=== PATIENT | female | born 1980 | race Caucasian/White ===

== ENCOUNTER 2022-11-27 17:14 | Emergency (ER) | payer OTHER, SELFPAY ==
--- NOTE | ~2022-11-27 | XR_ITS ---
EXAMINATION: XR ABDOMEN COMPLETE CLINICAL INDICATION: Reason for Exam upright and flat rule out obstruction COMPARISON: None TECHNIQUE: AP view of the abdomen. FINDINGS: Lines or devices: None. Nonobstructive bowel gas pattern. Large colonic stool burden. No extraluminal subdiaphragmatic air. Calcified phleboliths in the pelvis. XR/XR abdomen min 2V IMPRESSION: * Nonobstructive bowel gas pattern. Large colonic stool burden.
[2022-11-27 17:28] VITALS: BP 127/73; BP 168/96; PULSE 68; PULSE 73; RESP 16; TEMP 36.6; O2SAT 97; O2SAT 98; BMI 30.9
--- NOTE | 2022-11-27 18:12 | ED_ITS ---
HPI - General Adult General Chief complaint: General Medical Stated complaint: NO BM X'S 2 WEEKS FROM INPT @ [facility] Time Seen by Provider: 11/27/22 18:09 Source: patient Mode of arrival: ambulatory Limitations: no limitations History of Present Illness HPI narrative: No history of surgery, Patient with a history of constipation. No healty BM for 2 weeks. Onset (ago): week(s) Severity: moderate Related Data Home Medications Medication Instructions Recorded Confirmed clonazepam 1 mg tablet 1 tab PO TID PRN Anxiety 11/27/22 11/27/22 clonidine HCl 0.2 mg tablet 1 tab PO TID 11/27/22 11/27/22 gabapentin 400 mg capsule 1 cap PO TID 11/27/22 11/27/22 levothyroxine 100 mcg tablet 1 tab PO DAILY 11/27/22 11/27/22 metoprolol tartrate 100 mg tablet 1 tab PO DAILY 11/27/22 11/27/22 olanzapine 5 mg tablet 5 mg PO 11/27/22 quetiapine 100 mg tablet 100 mg PO 11/27/22 trazodone 100 mg tablet 1 tab PO BEDTIME 11/27/22 11/27/22 Allergies Allergy/AdvReac Type Severity Reaction Status Date / Time No Known Allergies Allergy Verified 11/27/22 18:17 Review of Systems Review of Systems: Yes all other systems are reviewed and are negative Gastrointestinal: Gastrointestinal: Reports other (constipation) [facility] Social History Social History Alcohol intake: never Smoked in Last 30 Days: No Use of substances other than those prescribed or required for medical reasons: No Advance Directives: No Advance Directives Information Provided: No Patient : No Physical Exam ED Vital Signs: Vital Signs - 24 hr 11/27/22 17:28 11/27/22 18:52 Temperature 97.9 F 98.2 F Pulse Rate 73 69 Respiratory Rate 16 18 Blood Pressure 168/96 H 152/85 H Pulse Oximetry 98 97 Oxygen Delivery Method Room Air Room Air BMI result Body Mass Index 30.9 Const General: healthy appearing Nutritional Appearance: average body habitus Orientation/consciousness: oriented to person and patient oriented x3 Limitations: no limitations HENMT Head: Yes normal to inspection Ears: external ears normal General nose exam: Normal external nose present Mouth: Normal oral and palatal mucosa present and oropharynx normal Throat: Yes posterior oropharynx normal Eyes General: appearance normal, both eyes and all related structures Neck Neck: Yes normal visual inspection Chest Chest palpation & inspection: normal inspection of the chest Resp Auscultation: clear to auscultation bilaterally Cardio Jugular venous distension: no JVD Rate: regular rate Rhythm: regular rhythm Heart sounds: S1 normal heart sound present and S2 normal heart sound present GI Other: large distended but has good BS and is soft Palpation (GI): Tenderness to palpation present (GI) Auscultation: normal bowel sounds General: Yes no CVA tenderness Back/Spine/Pelvis Back: no CVA tenderness Skin General skin exam: no rashes or lesions noted Neuro General: oriented to person and patient oriented x3 Cranial nerves: Yes CN's II-XII intact bilaterally Motor exam (neuro): 5/5 motor strength present throughout Extrem General: Yes normal to inspection Psych Appearance: grossly normal Course Reevaluation(s) Reevaluation #1: will dc patient on golytely Time: 19:34 Medications Administered Discontinued Medications Generic Name Dose Route Start Last Admin Trade Name Freq PRN Reason Stop Dose Admin Polyethylene Glycol/Electrolytes 4,000 ml 11/27/22 18:30 11/27/22 18:43 Peg 3350/Na Sulf,Bicarb,Cl/Kcl 4,000 Ml Soln.Recon PO 11/27/22 18:31 4,000 ml ONCE ONE Administration Medical Decision Making Differential Diagnosis Differential Diagnoses: The differential diagnosis associated with the presentation includes constipation, bowel obsrtuction, fecal impatction Independent Interpretation I performed an independent interpretation of an: Plain X-Ray (KUB shows no obstruction, large stool burden) Tests considered The following testing was considered but not selected: Ct of abdomen considered but patient had BS on soft abdomen Chronic Conditions Patient?s care impacted by: Other (constipation) Discharge Plan Discharge Clinical Impression: Constipation Patient Disposition: Home, Self-Care Instructions: Constipation (ED) Additional Instructions: take golytley as instructed Prescriptions: No Action metoprolol tartrate 100 mg tablet 1 tab PO DAILY gabapentin 400 mg capsule 1 cap PO TID olanzapine 5 mg tablet 5 mg PO clonazepam 1 mg tablet 1 tab PO TID PRN (Reason: Anxiety) quetiapine 100 mg tablet 100 mg PO levothyroxine 100 mcg tablet 1 tab PO DAILY clonidine HCl 0.2 mg tablet 1 tab PO TID trazodone 100 mg tablet 1 tab PO BEDTIME Referrals: Physician,Unknown J [Primary Care Provider] - 1 week
--- OUTSIDE RECORDS SUMMARY | 2022-11-27 18:14 | XMS_ITS | Continuity of Care Document ---
:1980 Author Organization [facility] Address [address] [place] [id number]- Care Team Providers Name Role Phone Not on Staff, PCP Primary Care Physician Unavailable Encounter [facility] [place] Date(s): 04/22/21 - 04/24/[address] [address] Discharge Disposition: A-D/C Home Attending Physician: Rosalina Kingston MD Admitting Physician: Abbie Lopez MD Referring Physician: Not on Staff, Referring MD Allergies, Adverse Reactions, Alerts Substance Reaction Severity Status amoxicillin Active Medications amitriptyline 100 mg oral tablet 1 tablet = 100 mg, By Mouth, Daily at bedtime, # 30 tablet, 0 Refills, Maintenance, 03/25/21 10:45:00 EDT, Tablet, Partial fill upon patient request if the prescription is for a schedule II opioid drug. Start Date: 03/25/21 Status: OrderedbuPROPion 150 mg/12 hours (SR) oral tablet, extended release 1 tablet = 150 mg, By Mouth, 2 times a day, # 60 tablet, 0 Refills, Maintenance, 03/25/21 10:36:00 EDT, ER Tablet, Partial fill upon patient request if the prescription is for a schedule II opioid drug. Start Date: 03/25/21 Status: OrderedcloNIDine 0.2 mg oral tablet 0.2 mg, 1, tablet, By Mouth, 3 times a day, # 60 tablet, Refills 0, Maintenance, 03/25/21 10:41:00 EDT, Partial fill upon patient request if the prescription is for a schedule II opioid drug. Start Date: 03/25/21 Status: OrderedColace sodium 100 mg oral capsule 100 mg, 1, capsule, By Mouth, 2 times a day, # 20 capsule, Refills 0, Tot. Refills 0, Maintenance, 03/25/21 19:04:00 EDT, Route to Pharmacy Electronically, [id number], Partial fill uponpatient request if the prescription is for a sche... Start Date: 03/25/21 Status: OrderedFleet Enema 19 gm-7 gm rectal enema 1 each, Rectally, Once, PRN as needed for constipation, # 133 mL, 0 Refills, Soft Stop, 03/26/21 12:00:00 EDT, Enema, [facility] #[id number], Partial fill upon patient request if the prescription is for a schedule II opioid drug., 1 each Rectally... Start Date: 03/26/21 Status: Orderedfolic acid 1 mg oral tablet 1 mg, 1, tablet, By Mouth, Daily, # 30 tablet, Refills 0, Maintenance, 03/25/21 10:39:00 EDT, Partial fill upon patient request if the prescription is for a schedule II opioid drug. Start Date: 03/25/21 Status: Orderedgabapentin 300 mg oral capsule 300 mg, 1, capsule, By Mouth, 3 times a day, # 90 capsule, Refills 0, Maintenance, 03/25/21 10:37:00EDT, Partial fill upon patient request if the prescription is for a schedule II opioid drug. Start Date: 03/25/21 Status: Orderedgabapentin 300 mg oral capsule 300 mg, Capsule, By Mouth, 04/24/21 9:00:00 EDT Start Date: 04/24/21 Stop Date: 04/24/21 Status: CompletedhydrOXYzine hydrochloride 25 mg oral tablet 1 tablet = 25 mg, By Mouth, 3 times a day, # 30 tablet, 0 Refills, Maintenance, 03/25/21 10:43:00 EDT, Tablet, Partial fill upon patient request if the prescription is for a schedule II opioid drug. Start Date: 03/25/21 Status: Orderedlactulose 10 gm/15 ml oral syrup 30 mL = 20 Gm, By Mouth, 2 times a day, Titrate to maintain 2-3 BM/day, # 1,000 mL, 1 Refills, Maintenance, 04/24/21 10:20:00 EDT, [id number], Partial fill upon patient request if the prescription is for a schedule II opioid audra... Start Date: 04/24/21 Status: OrderedMethadone See Instructions, 115 mg By Mouth Daily in AM, 0 Refills, Maintenance, 04/24/21 10:20:00 EDT, Tablet, Partial fill upon patient request if the prescription is for a schedule II opioid drug. Start Date: 04/24/21 Status: Orderedmethadone 10 mg oral tablet 115 mg, Tablet, By Mouth, 04/24/21 9:00:00 EDT Start Date: 04/24/21 Stop Date: 04/24/21 Status: Completedmetoprolol 100 mg oral tablet 200 mg, 2, tablet, By Mouth, 2 times a day, # 60 tablet, Refills 0, Maintenance, 03/25/21 10:40:00 EDT, Partial fill upon patient request if the prescription is for a schedule II opioid drug. Start Date: 03/25/21 Status: Orderedmetoprolol 100 mg oral tablet 200 mg, Tablet, By Mouth, 04/24/21 9:00:00 EDT Start Date: 04/24/21 Stop Date: 04/24/21 Status: CompletedMiraLax oral powder for reconstitution = 17 Gm, By Mouth, Daily, dissolve in water before taking, # 51 Gm, 0 Refills, Maintenance, 03/25/2119:04:00 EDT, REC Powder, [facility] #[id number], Partial fill upon patient request if the prescription is for a schedule II opioid drug., 17 Gm B... Start Date: 03/25/21 Stop Date: 03/28/21 Status: OrderedNicorette 4 mg oral transmucosal gum 1 each = 4 mg, Chew, Every 2 hours, PRN as needed for smoking cessation, # 40 each, 0 Refills, Maintenance, 03/25/21 10:37:00 EDT, Gum, Partial fill upon patient request if the prescription is for a schedule II opioid drug. Start Date: 03/25/21 Status: OrderedoxyCODONE 5 mg oral tablet 5 mg, Tablet, By Mouth, Every 6 hours, PRN for Pain , Severe, Routine, 04/22/21 17:18:00 EDT Start Date: 04/22/21 Stop Date: 04/24/21 Status: DiscontinuedQUEtiapine 50 mg oral tablet 1 tablet = 50 mg, By Mouth, 3 times a day, # 60 tablet, 0 Refills, Maintenance, 03/25/21 10:41:00 EDT, Tablet, Partial fill upon patient request if the prescription is for a schedule II opioid drug. Start Date: 03/25/21 Status: OrderedrisperiDONE 2 mg oral tablet 2 mg, 1, tablet, By Mouth, Daily at bedtime, Refills 0, Maintenance, 03/25/21 10:45:00 EDT, Partial fill upon patient request if the prescription is for a schedule II opioid drug. Start Date: 03/25/21 Status: Orderedsenna 17.2 mg oral tablet = 8.6 mg, By Mouth, 2 times a day, 2 tabs, # 60 tablet, 0 Refills, Maintenance, 04/24/21 10:19:00 EDT, Tablet, [id number], Partial fill upon patient request if the prescription is for aschedule II opioid drug., 162, cm, 04/24/21 7:38:... Start Date: 04/24/21 Status: OrderedtraZODone 50 mg oral tablet 50 mg, 1, tablet, By Mouth, Daily at bedtime, 1-2 tabs, # 30 tablet, Refills 0, Maintenance, 03/25/21 10:46:00 EDT, Partial fill upon patient request if the prescription is for a schedule II opioid drug. Start Date: 03/25/21 Status: OrderedVitamin B-100 By Mouth, Daily, 0 Refills, Maintenance, 03/25/21 10:38:00 EDT, Partial fill upon patient request ifthe prescription is for a schedule II opioid drug. Start Date: 03/25/21 Status: Ordered Problem List Condition Effective Dates Status Health Status Informant Abdominal pain(Confirmed) Active Asthma(Confirmed) Active Constipation(Confirmed) Active Hypothyroidism(Confirmed) Active Substance use disorder(Confirmed) Active Procedures Procedure Date Related Diagnosis Body Site Status Sigmoidoscopy, flexible; diagnostic, 04/23/21 Completed including collection of specimen(s) by brushing or washing, when performed (separate procedure) Vital Signs Most recent to oldest 1 2 3 [Reference Range]: Height 162 cm 162 cm 162 cm (04/24/21 7:38 AM) (04/24/21 4:30 AM) (04/23/21 7:4 0 PM) Weight 82.6 kg 82.6 kg 82.6 kg (04/23/21 1:44 PM) (04/22/21 9:30 AM) (04/22/21 9:1 1 AM) Oxygen Saturation [94-100 %] 98 % 98 % 100 % (04/24/21 7:38 AM) (04/24/21 4:30 AM) (04/23/21 7:4 0 PM) Pulse Rate [55-90 bpm] 68 bpm 68 bpm 67 bpm (04/24/21 9:51 AM) (04/24/21 7:38 AM) (04/24/21 4:3 0 AM) Body Mass Index [18.5-24.99] 31.47 31.47 *>HHI* *>HHI* (04/23/21 1:44 PM) (04/22/21 9:30 AM) Blood Pressure [90-138/55-84 149/85 mm Hg 149/85 mm Hg 118 /69 mm Hg mm Hg] *H* *H* (04/24/21 4:30 AM ) (04/24/21 9:51 AM) (04/24/21 7:38 AM) Respiratory Rate [16-30 20 br/min 20 br/min 20 br/mi n br/min] (04/24/21 11:06 AM) (04/24/21 10:51 AM) (04/24/21 1 0:50 AM) Temperature [96.8-100.4 98.2 DegF 98.6 DegF 97.7 Deg F DegF] (04/24/21 7:38 AM) (04/24/21 4:30 AM) (04/23/21 7:4 0 PM) Mode of Delivery (Oxygen) Room air Room air Room a ir (04/24/21 7:38 AM) (04/24/21 4:30 AM) (04/23/21 7:4 0 PM) Blood pressure sites Arm, left Arm, right Arm, left (04/24/21 7:38 AM) (04/24/21 4:30 AM) (04/23/21 7:4 0 PM) Temperature Route Oral Oral Oral (04/24/21 7:38 AM) (04/24/21 4:30 AM) (04/23/21 7:4 0 PM) Dry Weight 82.6 kg 82.6 kg (04/22/21 9:30 AM) (04/22/21 9:11 AM) Weight Obtained Via Standing scale (04/22/21 9:11 AM) Dry Weight Obtained Via Standing scale (04/22/21 9:11 AM) Social History Social History Type Response Tobacco Use: 4 or less cigarettes(le ss than 1/4 pack)/day in last 30 days. Sex
--- OUTSIDE RECORDS SUMMARY | 2022-11-27 18:14 | XMS_ITS | Continuity of Care Document ---
:1980 Author Organization [facility] Address [address] [place] [address]- Care Team Providers Name Role Phone Not on Staff, PCP Primary Care Physician Unavailable Encounter [facility] [place] Date(s): 02/28/22 - 03/01/[address] [address]- Discharge Disposition: A-D/C Walkout Attending Physician: Not on Staff, Attending MD Admitting Physician: Not on Staff, Admitting MD Referring Physician: Not on Staff, Referring [...] 03/25/21 19:04:00 EDT, Route to Pharmacy Electronically, [facility] #[id number], Partial fill uponpatient request if the prescription is for a sche... Start Date: 03/25/21 Status: OrderedFleet Enema 19 gm-7 gm rectal enema 1 each, Rectally, Once, PRN as needed for constipation, # 133 mL, 0 Refills, Soft Stop, 03/26/21 12:00:00 EDT, Enema, [facility] #[id number], Partial fill upon patient request if the [...] II opioid drug. Start Date: 03/25/21 Status: OrderedhydrOXYzine hydrochloride 25 mg oral tablet 1 tablet [...] 1 Refills, Maintenance, 04/24/21 10:20:00 EDT, Syrup, [facility] #[id number], Partial fill upon patient request if the prescription is for a schedule II opioid audra... Start Date: 04/24/21 Status: OrderedMethadone See Instructions, 115 mg By Mouth Daily in AM, 0 Refills, Maintenance, 04/24/21 10:20:00 EDT, Tablet, Partial fill upon patient request if the prescription is for a schedule II opioid drug. Start Date: 04/24/21 Status: Orderedmetoprolol 100 mg oral tablet 200 mg, 2, tablet, By Mouth, 2 times a day, # 60 tablet, Refills 0, Maintenance, 03/25/21 10:40:00 EDT, Partial fill upon patient request if the prescription is for a schedule II opioid drug. Start Date: 03/25/21 Status: OrderedMiraLax oral powder for reconstitution = 17 Gm, By Mouth, Daily, dissolve in water before taking, # 51 Gm, 0 Refills, Maintenance, 03/25/2119:04:00 EDT, REC Powder, [facility] #[id number], Partial fill upon patient request if the [...] II opioid drug. Start Date: 03/25/21 Status: OrderedQUEtiapine 50 mg oral tablet 1 tablet = [...] 0 Refills, Maintenance, 04/24/21 10:19:00 EDT, Tablet, [facility] #[id number], Partial fill upon patient request if the [...] Active Hypothyroidism(Confirmed) Active Substance use disorder(Confirmed) Active Vital Signs Most recent to oldest [Reference Range]: 1 2 Oxygen Saturation [94-100 %] 98 % 97 % (03/01/22 8:01 AM) (02/28/22 11:26 PM) Pulse Rate [55-90 bpm] 71 bpm 71 bpm (03/01/22 8:01 AM) (02/28/22 11:26 PM) Blood Pressure [90-138/55-84 mm Hg] 129/89 mm Hg 111/ 75 mm Hg (03/01/22 8:01 AM) (02/28/22 11:26 PM) Respiratory Rate [16-30 br/min] 14 br/min *L* (02/28/22 11: PM) Temperature [96.8-100.4 DegF] 97.3 DegF 97.9 DegF (03/01/22 8:01 AM) (02/28/22 11:26 PM) Mode of Delivery (Oxygen) Room air Room air (03/01/22 8:01 AM) (02/28/22 11:26 PM) Blood pressure sites Arm, right Arm, left (03/01/22 8:01 AM) (02/28/22 11:26 PM) Temperature Route Oral Oral (03/01/22 8:01 AM) (02/28/22 11:26 PM) Social History Social History Type Response Tobacco Use: 4 or less cigarettes(le ss than 1/4 pack)/day in last 30 days. Sex
--- OUTSIDE RECORDS SUMMARY | 2022-11-27 18:14 | XMS_ITS | Continuity of Care Document ---
:1980 Author Organization [facility] Address [address] [place] [id number]- Care Team Providers Name Role Phone Not on Staff, PCP Primary Care Physician Unavailable Encounter [facility] [place] Date(s): 07/01/21 - 07/31/21 [facility] [address] [place] [id number]- Attending Physician: William Pardo Admitting Physician: William Pardo Referring Physician: William Pardo Allergies, Adverse Reactions, Alerts Substance Reaction Severity [...] 03/25/21 19:04:00 EDT, [facility], [id number], Partial fill uponpatient request if the prescription is for a sche... Start Date: 03/25/21 Status: OrderedFleet Enema 19 gm-7 gm rectal enema 1 each, Rectally, Once, PRN as needed for constipation, # 133 mL, 0 Refills, Soft Stop, 03/26/21 12:00:00 EDT, Enema, [id number], Partial fill upon patient request if the [...] 1 Refills, Maintenance, 04/24/21 10:20:00 EDT, Syrup, [id number], Partial fill upon patient request if the [...] 0 Refills, Maintenance, 03/25/2119:04:00 EDT, REC Powder, [facility] #[id number], Partial fill upon patient request if the [...] 0 Refills, Maintenance, 04/24/21 10:19:00 EDT, Tablet, [facility] #[id number], Partial fill upon patient request if the [...] Active Hypothyroidism(Confirmed) Active Substance use disorder(Confirmed) Active Social History Social History Type Response Tobacco Use: 4 or less cigarettes(le ss than 1/4 pack)/day in last 30 days. Sex
--- OUTSIDE RECORDS SUMMARY | 2022-11-27 18:14 | XMS_ITS | Continuity of Care Document ---
:1980 Author Organization [facility] Address [address] [place] [address]- Care Team Providers Name Role Phone Not on Staff, PCP Primary Care Physician Unavailable Encounter [facility] [place] Date(s): 03/02/22 - 03/04/[address] [address] Discharge Disposition: A-D/C Home Attending Physician: Isabela Hall MD Admitting Physician: Ari Villarreal MD Referring Physician: Not on Staff, Referring MD Allergies, Adverse Reactions, Alerts Substance Reaction Severity Status amoxicillin Active Medications acetaminophen 325 mg oral tablet 650 mg, By Mouth, Every 4 hours, PRN, Temperature Greater than 100.5, Refills 0, Maintenance, Pain ,Mild, 03/04/22 13:37:00 EDT, Partial fill upon patient request if the prescription is for a scheduleII opioid drug. Start Date: 03/04/22 Status: Orderedamitriptyline 100 mg oral tablet 1 tablet = 100 mg, By Mouth, Daily at bedtime, # 30 tablet, 0 Refills, Maintenance, 03/25/21 10:45:00 EDT, Tablet, Partial fill upon patient request if the prescription is for a schedule II opioid drug. Start Date: 03/25/21 Status: OrderedB Complex 100 1 tablet, By Mouth, Daily, 0 Refills, Maintenance, 03/02/22 17:20:00 EDT, Partial fill upon patient request if the prescription is for a schedule II opioid drug. Start Date: 03/02/22 Status: Orderedbaclofen 10 mg oral tablet 5 mg, Tablet, By Mouth, 03/04/22 15:00:00 EDT Start Date: 03/04/22 Stop Date: 03/04/22 Status: Completedbaclofen 10 mg oral tablet 5 mg, 0.5, tablet, By Mouth, 3 times a day, # 10.5 tablet, Refills 0, Tot. Refills 0, Maintenance, 03/04/22 11:48:00 EDT, Route to Pharmacy Electronically, [facility], Partial fill upon patient request if the prescription is for a schedu... Start Date: 03/04/22 Stop Date: 03/11/22 Status: Orderedbisacodyl 10 mg rectal suppository 1 supp = 10 mg, Rectally, Daily, PRN for constipation, for 5 days, # 5 supp, 0 Refills, Acute 03/09/22 13:40:00 EDT, 03/04/22 13:40:00 EDT, Suppository, [facility], Partial fill upon patient request if the prescription is for a schedule... Start Date: 03/04/22 Stop Date: 03/09/22 Status: OrderedbuPROPion 150 mg/12 hours (SR) oral [...] II opioid drug. Start Date: 03/25/21 Status: Ordereddocusate-senna 50 mg-187 mg oral tablet 2 tablet, By Mouth, 2 times a day, PRN Constipation, for 10 days, # 30 tablet, 0 Refills, Acute 03/14/22 13:38:00 EDT, 03/04/22 13:38:00 EDT, Tablet, [facility], Partial fill upon patientrequest if the prescription is for a schedule II... Start Date: 03/04/22 Stop Date: 03/14/22 Status: Orderedfolic acid 1 mg oral tablet 1 mg, 1, tablet, By Mouth, Daily, # 30 tablet, Refills 0, Maintenance, 03/25/21 10:39:00 EDT, Partial fill upon patient request if the prescription is for a schedule II opioid drug. Start Date: 03/25/21 Status: Orderedgabapentin 300 mg oral capsule 300 mg, Capsule, By Mouth, 03/04/22 15:00:00 EDT Start Date: 03/04/22 Stop Date: 03/04/22 Status: Completedgabapentin 300 mg oral capsule 300 mg, 1, [...] II opioid drug. Start Date: 03/25/21 Status: Orderedlevothyroxine 100 mcg (0.1 mg) oral capsule 1 capsule = 100 mcg, By Mouth, Daily, 0 Refills, Maintenance, 03/02/22 17:21:00 EDT, Partial fill upon patient request if the prescription is for a schedule II opioid drug. Start Date: 03/02/22 Status: OrderedMethadone = 115 mg, By Mouth, Daily, 0 Refills, Maintenance, 04/24/21 10:20:00 EDT, Tablet, [...] 03/25/21 Status: Orderedmetoprolol 100 mg oral tablet 100 mg, Tablet, By Mouth, 03/04/22 7:00:00 EDT Start Date: 03/04/22 Stop Date: 03/04/22 Status: CompletedPhillips Milk of Magnesia 8% oral suspension 30 mL = 2.4 Gm, By Mouth, Daily at bedtime, PRN for constipation, # 300 mL, 0 Refills, Acute 03/17/22 9:00:00 EDT, 03/04/22 13:39:00 EDT, Suspension, [facility], Partial fill upon patientrequest if the prescription is for a schedule II... Start Date: 03/04/22 Stop Date: 03/17/22 Status: OrderedProAir HFA 90 mcg/inh inhalation aerosol 2 puffs, Inhalation, Every 6 hours, PRN Wheezing/Shortness of Breath, 0 Refills, Maintenance, 03/02/22 17:21:00 EDT, Partial fill upon patient request if the prescription is for a schedule II opioid drug. Start Date: 03/02/22 Status: OrderedQUEtiapine 50 mg oral tablet 1 tablet = 50 mg, By Mouth, 3 times a day, # 60 tablet, 0 Refills, Maintenance, 03/25/21 10:41:00 EDT, Tablet, Partial fill upon patient request if the prescription is for a schedule II opioid drug. Start Date: 03/25/21 Status: OrderedtraZODone 100 mg oral tablet 100 mg, 1, tablet, By Mouth, Daily at bedtime, Refills 0, Maintenance, 03/02/22 17:20:00 EDT, Partial fill upon patient request if the prescription is for a schedule II opioid drug. Start Date: 03/02/22 Status: Ordered Problem List Condition Effective Dates Status Health Status Informant Abdominal pain(Confirmed) Active Asthma(Confirmed) Active Constipation(Confirmed) Active Hypothyroidism(Confirmed) Active Substance use disorder(Confirmed) Active Results Orders for Microbiology Reports Name Date Blood Culture 03/02/22 Blood Culture 03/02/22 Blood Culture #2 03/02/22 Microbiology Reports TEST:Blood Culture STATUS:Unauthenticated BODY SITE: SOURCE:Blood COLLECTED DATE/TIME:03/02/22 1:52 PMBlood Culture SPECIMEN DESCRIPTION : BLOOD R UPPER ARM SPECIAL REQUESTS : NONE CULTURE : NO GROWTH AFTER 48 HOURS REPORT STATUS : PRELIMINARY REPORT TEST:Blood Culture, Second Order STATUS:Unauthenticated BODY SITE: SOURCE:Blood COLLECTED DATE/TIME:03/02/22 1:45 PMBlood Culture, Second Order SPECIMEN DESCRIPTION : BLOOD NO SITE SPECIAL REQUESTS : NONE CULTURE : NO GROWTH AFTER 48 HOURS REPORT STATUS : PRELIMINARY REPORT TEST:Blood Culture STATUS:Unauthenticated BODY SITE: SOURCE:Blood COLLECTED DATE/TIME:03/02/22 1:35 PMBlood Culture SPECIMEN DESCRIPTION : BLOOD L WRIST SPECIAL REQUESTS : NONE CULTURE : NO GROWTH AFTER 48 HOURS REPORT STATUS : PRELIMINARY REPORT Radiology Reports Exam Date Time Procedure Performing Provider Status 03/03/22 1:21 PM Lumbar Spine 2 or 3 Views Nicolas Hardwick [facility] (Verified) Notes:(Lumbar Spine 2 or 3 Views) Reason For Exam: PainRESULT: Lumbar Spine 2 or 3 Views Lumbar Spine 2 or 3 Views Reason: Pain; Clinical Question(s): Fracture Dislocation COMPARISON: None. FINDINGS: No bone lesions or fractures. Normal disc configuration. Normal alignment. No spondylolysis or spondylolisthesis. Large volume colonic fecal loading. IMPRESSION: 1. No fracture, malalignment, or significant degenerative change within the lumbar spine. 2. Large volume colonic fecal loading. WSN: [id number] Ordering Physician: Reagan Cloud Dictated By: Lemuel Duarte MD Dictated Date/Time: 03/03/22 1:37 pm Reviewed By: Lemuel Duarte MD Signed By: Lemuel Duarte MD Signed Date/Time: 03/03/22 1:37 pm Transcribed By: RAVINDER Transcribed Date/Time: 03/03/22 1:36 pm Exam Date Time Procedure Performing Provider Status 03/02/22 10:29 PM Chest 2 Views Frontal and Lat Samantha Hair; Mami (Verified) Notes:(Chest 2 Views Frontal and Lat) Reason For Exam: Shortness of Breath, Fever;Other:RESULT: Chest 2 Views Frontal and Lat Chest 2 Views Frontal and Lat Reason: Other:; Shortness of Breath, Fever; Clinical Question(s): Pneumonia COMPARISON: 01/02/2022. FINDINGS: LINES AND TUBES: None. LUNGS AND PLEURA: Clear lungs. Normal pulmonary vascularity. No pleural effusion. No pneumothorax. HEART, MEDIASTINUM AND DENNIS: Heart is normal in size. Normal upper mediastinal and hilar contour. BONES AND SOFT TISSUES: No acute abnormality. IMPRESSION: No acute abnormality. WSN: [id number] Ordering Physician: Yvrose Heller Dictated By: Raul Flowers MD Dictated Date/Time: 03/02/22 10:43 p Reviewed By: Raul Flowers MD Signed By: Raul Flowers MD Signed Date/Time: 03/02/22 10:43 pm Transcribed By: RAVINDER Transcribed Date/Time: 03/02/22 10:40 pm Vital Signs Most recent to oldest 1 2 3 [Reference Range]: Oxygen Saturation [94-100 %] 98 % 97 % 96 % (03/04/22 11:54 AM) (03/04/22 8:00 AM) (03/04/22 4: 00 AM) Pulse Rate [55-90 bpm] 59 bpm 72 bpm 62 bpm (03/04/22 11:54 AM) (03/04/22 8:42 AM) (03/04/22 8: 00 AM) Blood Pressure [90-138/55-84 106/59 mm Hg 124/68 mm Hg 124 /68 mm Hg mm Hg] (03/04/22 11:54 AM) (03/04/22 8:42 AM) (03/04/22 8: 00 AM) Respiratory Rate [16-30 18 br/min 18 br/min 18 br/mi n br/min] (03/04/22 3:28 PM) (03/04/22 3:25 PM) (03/04/22 11: 54 AM) Temperature [96.8-100.4 DegF] 98.0 DegF 98.2 DegF 97 .2 DegF (03/04/22 11:54 AM) (03/04/22 8:00 AM) (03/04/22 4: 00 AM) Mode of Delivery (Oxygen) Room air Room air Room a ir (03/04/22 11:54 AM) (03/04/22 8:00 AM) (03/04/22 4: 00 AM) Blood pressure sites Arm, left Arm, right Arm, right (03/04/22 8:00 AM) (03/04/22 4:00 AM) (03/04/22 12: 00 AM) Temperature Route Oral Oral Oral (03/04/22 11:54 AM) (03/04/22 8:00 AM) (03/04/22 4: 00 AM) Social History Social History Type Response Tobacco Use: 4 or less cigarettes(le ss than 1/4 pack)/day in last 30 days. Sex
--- OUTSIDE RECORDS SUMMARY | 2022-11-27 18:14 | XMS_ITS | Continuity of Care Document ---
:1980 Author Organization [facility] Address [address] [place] [id number]- Care Team Providers Name Role Phone Valarie ZIMMERMAN, Jennifer Primary Care Physician Encounter [facility] [place] Date(s): 12/24/19 - 12/24/[address] [address]- [facility] Encounter Diagnosis Asthma exacerbation (Final) - 12/24/19 Discharge Disposition: A-D/C Home Attending Physician: Kd Baer MD Admitting Physician: Kd Baer MD Referring Physician: Not on Staff, Referring MD Allergies, Adverse Reactions, Alerts Substance Reaction Severity Status NKA Active Medications albuterol CFC free 90 mcg/inh inhalation aerosol 2, puffs, Inhalation, 4 times a day, PRN, # 75 Gm, Refills 0, Tot. Refills 0, Maintenance, 12/24/19 20:06:00 EDT, Aerosol, Print Requisition Start Date: 12/24/19 Status: OrderedpredniSONE 20 mg oral tablet 2 tablet = 40 mg, By Mouth, Daily, for 4 days, # 8 tablet, 0 Refills, Acute 12/28/19 20:06:00 EDT, 12/24/19 20:06:00 EDT, Tablet Start Date: 12/24/19 Stop Date: 12/28/19 Status: Ordered Vital Signs Most recent to oldest 1 2 3 [Reference Range]: Oxygen Saturation [94-100 %] 96 % 98 % 100 % (12/24/19 8:31 PM) (12/24/19 6:39 PM) (12/24/19 6:3 0 PM) Pulse Rate [55-90 bpm] 68 bpm 66 bpm 72 bpm (12/24/19 8:31 PM) (12/24/19 6:39 PM) (12/24/19 6:3 0 PM) Blood Pressure [90-138/55-84 mm 113/66 mm Hg 115/70 mm Hg Hg] (12/24/19 8:31 PM) (12/24/19 6:39 PM) Respiratory Rate [16-30 br/min] 18 br/min 18 br/min (12/24/19 8:31 PM) (12/24/19 6:39 PM) Temperature [96.8-100.4 DegF] 97.5 DegF 98.2 DegF (12/24/19 8:31 PM) (12/24/19 6:39 PM) Mode of Delivery (Oxygen) Room air Room air Room a ir (12/24/19 8:31 PM) (12/24/19 6:39 PM) (12/24/19 6:3 0 PM) Blood pressure sites Arm, right Arm, right (12/24/19 8:31 PM) (12/24/19 6:39 PM) Temperature Route Oral Oral (12/24/19 8:31 PM) (12/24/19 6:39 PM)
--- OUTSIDE RECORDS SUMMARY | 2022-11-27 18:14 | XMS_ITS | Continuity of Care Document ---
:1980 Author Organization [facility] Address [address] [place] [id number]- Care Team Providers Name Role Phone Not on Staff, PCP Primary Care Physician Unavailable Encounter [facility] [place] Date(s): 04/29/21 - 07/31/21 [facility] [address] [place] [id number]- Attending Physician: Manuel Louis MD Admitting Physician: Manuel Louis MD Referring Physician: Blanche May MD Allergies, Adverse Reactions, Alerts Substance Reaction [...] 03/25/21 19:04:00 EDT, Route to Pharmacy Electronically, [id number], Partial fill uponpatient request if the prescription is for a sche... Start Date: 03/25/21 Status: OrderedFleet Enema 19 gm-7 gm rectal enema 1 each, Rectally, Once, PRN as needed for constipation, # 133 mL, 0 Refills, Soft Stop, 03/26/21 12:00:00 EDT, Enema, [facility] [id number], Partial fill upon patient request if the [...] 1 Refills, Maintenance, 04/24/21 10:20:00 EDT, Syrup, [id number], Partial fill upon patient request if the [...] 0 Refills, Maintenance, 03/25/2119:04:00 EDT, REC Powder, [id number], Partial fill upon patient request if the [...] 0 Refills, Maintenance, 04/24/21 10:19:00 EDT, Tablet, [id number], Partial fill upon patient request if the [...]
--- NOTE | 2022-11-27 18:30 | PC.NURSE ---
med not available down here at this time, called pharmacy, pharmacy will be bringing med down
[2022-11-27] MEDS: PEG 3350/Na Sulf,Bicarb,Cl/KCL 4,000 ML SOLN.RECON 4000 ML PO (18:43)
[2022-11-27 18:52] VITALS: BP 152/85; PULSE 69; RESP 18; TEMP 36.8; O2SAT 97
--- NOTE | 2022-11-27 20:10 | MHC.EDTECH ---
Call out to [facility] @1958 to book BLS transport to [place] ETA of one hour
== END 2022-11-27 20:55 | disposition home or self-care (01) ==
PROVIDERS: Emergency Provider Emergency Medicine
DX: K59.00 Constipation, unspecified (principal); R10.9 Unspecified abdominal pain; Z79.899 Other long term (current) drug therapy
CPT/HCPCS: 74019; 99283; 99284

== ENCOUNTER 2022-12-12 13:54 | Emergency (ER) | payer OTHER, SELFPAY ==
[2022-12-12 14:20] VITALS: BP 115/67; BP 118/75; PULSE 86; PULSE 94; RESP 18; TEMP 37.2; O2SAT 95; BMI 30.9
[2022-12-12 15:22] LABS: Amphetamine Screen Urine Not Detected (Not Detect); Barbiturates, Urine Not Detected (Not Detect); Benzodiazepines Screen Urine POSITIVE (Not Detect); COVID-19 Test Negative (Negative); Cannabinoid Screen Urine Not Detected (Not Detect); Cocaine Screen Urine Not Detected (Not Detect); Fentanyl, urine Not Detected (Not Detect); IDNOW Serial# 9DB6401D; Opiate Screen Urine Not Detected (Not Detect); Phencyclidine Screen Urine Not Detected (Not Detect)
--- NOTE | 2022-12-12 15:23 | ED.PSYCH ---
HPI - Psych General Chief Complaint: Psychiatric Symptoms <Alba Ramirez QUE Dobbins - Last Filed: 12/12/22 20:33> Stated Complaint: SEC 12, SI, From rehab per EMS <Alba Ramirez QUE Dobbins - Last Filed: 12/12/22 20:33> Time Seen by Provider: 12/12/22 14:55 <Albakeri Dobbins CNP - Last Filed: 12/12/22 20:33> Source: patient <Alba DobbinsQUE - Last Filed: 12/12/22 20:33> Mode of arrival: EMS <Alba Ramirez QUE Dobbins - Last Filed: 12/12/22 20:33> Limitations: no limitations <Alba Ramirez QUE Dobbins - Last Filed: 12/12/22 20:33> History of Present Illness HPI Narrative: Patient is a 42-year-old female who presents on a Section 12 via EMS coming from [facility]. Patient states that she was initially at [facility] for inpatient psychiatric care after an intentional overdose. She states that she was downgraded to detox/[facility] floor?, reports that the medication changes were made she does not know all of them, but particularly she was not receiving her Vyvanse secondary to an insurance issue? And there was no doctor there who could accommodate medication changes. Therefore she was subsequently transferred here. Her Section 12 does state that she has been endorsing SI, with urges for self-harm, recent thoughts, paranoia, disorganized thinking and poor sleep. She does endorse suicidal ideations at this time. She has no physical complaints. <Alba Ashleyinga Dobbins CNP - Last Filed: 12/12/22 20:33> Related Data Home Medications: Home Medications Medication Instructions Recorded Confirmed atomoxetine 40 mg capsule 40 mg PO DAILY 12/12/22 12/12/22 bupropion HCl 150 mg 24 hr tablet, 150 mg PO QAM 12/12/22 12/12/22 extended release clonazepam 1 mg tablet (Klonopin) 1 mg PO BID 12/12/22 12/12/22 clonidine HCl 0.2 mg tablet 0.2 mg PO BID PRN Anxiety 12/12/22 12/12/22 folic acid 1 mg tablet 1 mg PO DAILY 12/12/22 12/12/22 gabapentin 400 mg tablet 400 mg PO TID 12/12/22 12/12/22 levothyroxine 100 mcg tablet 100 mcg PO DAILY 12/12/22 12/12/22 lisdexamfetamine 20 mg capsule 20 mg PO DAILY 12/12/22 12/12/22 (Vyvanse) nicotine 21 mg/24 hr daily 1 patch transdermal DAILY 12/12/22 12/12/22 transdermal patch olanzapine 5 mg PO BID 12/12/22 12/12/22 propranolol 10 mg tablet 10 mg PO TID 12/12/22 12/12/22 quetiapine 150 mg tablet,extended 150 mg PO BEDTIME 12/12/22 12/12/22 release 24 hr trazodone 100 mg tablet 100 mg PO BEDTIME 12/12/22 12/12/22 <Alba Dobbins CNP - Last Filed: 12/12/22 20:33> Allergies/Adverse Reactions: Allergies Allergy/AdvReac Type Severity Reaction Status Date / Time No Known Allergies Allergy Verified 11/27/22 18:17 <Alba Dobbins CNP - Last Filed: 12/12/22 20:33> Review of Systems Review of Systems: Yes all other systems are reviewed and are negative <Alba Dobbins CNP - Last Filed: 12/12/22 20:33> [facility] Past Medical History Attestation statement: The following information was validated with the patient. <Alba Dobbins CNP - Last Filed: 12/12/22 20:33> Source: old records reviewed <Alba Dobbins CNP - Last Filed: 12/12/22 20:33> Social History Social History: Social History Alcohol intake: never Advance Directives: No Advance Directives Information Provided: Yes Healthcare Proxy: No Guardian: No <Alba Dobbins CNP - Last Filed: 12/12/22 20:33> Physical Exam Vital Signs: Vital Signs: Last Vital Signs Temp 97.8 F 12/13/22 08:23 Pulse 86 12/13/22 08:23 Resp 16 12/13/22 08:23 BP 126/89 12/13/22 08:23 Pulse Ox 96 03/04/23 08:23 O2 Del Method 12/13/22 08:23 BMI result Body Mass Index 30.9 <Alba Dobbins CNP - Last Filed: 12/12/22 20:33> Vital Signs: Last Vital Signs Temp 97.8 F 12/13/22 08:23 Pulse 86 12/13/22 08:23 Resp 16 12/13/22 08:23 BP 126/89 12/13/22 08:23 Pulse Ox 96 12/13/22 08:23 O2 Del Method 12/13/22 08:23 BMI result Body Mass Index 30.9 <Michael Brock MD - Last Filed: 12/13/22 11:00> Appearance: Alert.?Oriented to person, place and time. No acute distress.?Normal affect. Eyes: Pupils equal, round and reactive to light.? ENT: Pharynx normal.?? Neck: Normal inspection.? Neck supple.?? CVS: Heart sounds normal. Normal heart rate and rhythm.? Pulses normal.?? Respiratory: No respiratory distress.? Lung sounds clear to auscultation bilaterally?? Abdomen: Soft and non-tender. Normoactive bowel sounds. Skin: Skin warm and dry.? Normal skin color.? Extremities: No lower extremity edema.? Neuro: Moves all extremities spontaneously. Sensation intact bilaterally. CN II-XII intact. No focal neuro deficits. Ambulates with normal steady gait. <Alba Dobbins CNP - Last Filed: 12/12/22 20:33> Course Reevaluation(s) Reevaluation #1: Labs are overall unremarkable, vitals are stable, COVID negative, urinalysis without evidence of infection, is negative, MCGRAW positive for benzodiazepines, which she is prescribed. Patient placed in physician observation, the reason for observation being that additional time was required for care team evaluation to be performed, determination as to whether inpatient psychiatric services are required at this time. She is in no apparent distress. <Alba Dobbins CNP - Last Filed: 12/12/22 20:33> Time: 20:20 <Alba Dobbins CNP - Last Filed: 12/12/22 20:33> Reevaluation #2: Patient under physician observation, on Section 12, bed search is underway, no events reported by nurses overnight, continue physician observation. <Michael Brock MD - Last Filed: 12/13/22 11:00> Time: 11:00 <Michael Brock MD - Last Filed: 12/13/22 11:00> Medications Administered Generic Name Dose Route Start Last Admin Trade Name Freq PRN Reason Stop Dose Admin Bupropion HCl 150 mg 12/13/22 09:00 12/13/22 08:45 Bupropion Hcl Xl 150 Mg Tab.Er.24h PO 150 mg DAILY CHRISTOPHER Administration Clonazepam 1 mg 12/12/22 21:00 12/13/22 08:45 Clonazepam 1 Mg Tablet PO 1 mg BID CHRISTOPHER Administration Clonidine HCl 0.2 mg 12/12/22 17:31 12/12/22 20:44 Clonidine Hcl 0.2 Mg Tablet PO 0.2 mg BID PRN Administration Anxiety Protocol Folic Acid 1 mg 12/13/22 09:00 12/13/22 08:45 Folic Acid 1 Mg Tablet PO 1 mg DAILY CHRISTOPHER Administration Gabapentin 400 mg 12/12/22 21:00 12/13/22 08:45 Gabapentin 400 Mg Capsule PO 400 mg TID CHRISTOPHER Administration Levothyroxine Sodium 100 mcg 12/13/22 06:00 12/13/22 05:32 Levothyroxine Sodium 100 Mcg Tablet PO 100 mcg DAILY@0600 CHRISTOPHER Administration Nicotine 21 mg 12/13/22 09:00 12/13/22 08:45 Nicotine 21 Mg Patch.Td24 TRANSDERMA 21 mg DAILY CHRISTOPHER Administration Olanzapine 5 mg 12/12/22 21:00 12/13/22 08:45 Olanzapine 5 Mg Tablet PO 5 mg BID CHRISTOPHER Administration Propranolol HCl 10 mg 12/12/22 21:00 12/13/22 08:45 Propranolol Hcl 10 Mg Tablet PO 10 mg TID CHRISTOPHER Administration Protocol Quetiapine Fumarate 50 mg/ 75 mg 12/12/22 21:00 12/13/22 08:45 Quetiapine Fumarate 25 mg PO 75 mg BID CHRISTOPHER Administration Trazodone HCl 100 mg 12/12/22 21:00 12/12/22 20:38 Trazodone Hcl 100 Mg Tablet PO 100 mg BEDTIME CHRISTOPHER Administration <Alba Dobbins CNP - Last Filed: 12/12/22 20:33> Medications Administered Generic Name Dose Route Start Last Admin Trade Name Freq PRN Reason Stop Dose Admin Bupropion HCl 150 mg 12/13/22 09:00 12/13/22 08:45 Bupropion Hcl Xl 150 Mg Tab.Er.24h PO 150 mg DAILY CHRISTOPHER Administration Clonazepam 1 mg 12/12/22 21:00 12/13/22 08:45 Clonazepam 1 Mg Tablet PO 1 mg BID CHRISTOPHER Administration Clonidine HCl 0.2 mg 12/12/22 17:31 12/12/22 20:44 Clonidine Hcl 0.2 Mg Tablet PO 0.2 mg BID PRN Administration Anxiety Protocol Folic Acid 1 mg 12/13/22 09:00 12/13/22 08:45 Folic Acid 1 Mg Tablet PO 1 mg DAILY CHRISTOPHER Administration Gabapentin 400 mg 12/12/22 21:00 12/13/22 08:45 Gabapentin 400 Mg Capsule PO 400 mg TID CHRISTOPHER Administration Levothyroxine Sodium 100 mcg 12/13/22 06:00 12/13/22 05:32 Levothyroxine Sodium 100 Mcg Tablet PO 100 mcg DAILY@0600 CHRISTOPHER Administration Nicotine 21 mg 12/13/22 09:00 12/13/22 08:45 Nicotine 21 Mg Patch.Td24 TRANSDERMA 21 mg DAILY CHRISTOPHER Administration Olanzapine 5 mg 12/12/22 21:00 12/13/22 08:45 Olanzapine 5 Mg Tablet PO 5 mg BID CHRISTOPHER Administration Propranolol HCl 10 mg 12/12/22 21:00 12/13/22 08:45 Propranolol Hcl 10 Mg Tablet PO 10 mg TID CHRISTOPHER Administration Protocol Quetiapine Fumarate 50 mg/ 75 mg 12/12/22 21:00 12/13/22 08:45 Quetiapine Fumarate 25 mg PO 75 mg BID CHRISTOPHER Administration Trazodone HCl 100 mg 12/12/22 21:00 12/12/22 20:38 Trazodone Hcl 100 Mg Tablet PO 100 mg BEDTIME CHRISTOPHER Administration <Michael Brock MD - Last Filed: 12/13/22 11:00> Medical Decision Making Medical Decision Making MDM Narrative: Patient is a 42-year-old female who presents to the emergency department via EMS coming from [facility] on a Section 12 for suicidal ideations. At the time of my examination she is calm and cooperative. Her physical examination is benign. Her vital signs are stable. She is in no apparent respiratory distress. She reports that her feelings of suicidal ideation or due to her medication changes, most notably she states because she was taken off her Vyvanse due to a question lance insurance issue while there? Will obtain basic labs, attempt to obtain records from [facility] for most up-to-date medication list, and referred to care team for evaluation of potential inpatient psychiatric admission. I have reviewed her Mass[facility], patient does not have any prior prescriptions for Vyvanse that I can see, and she reports she was not receiving it while at [facility] <Alba Dobbins CNP - Last Filed: 12/12/22 20:33> Differential Diagnosis Differential Diagnoses: The differential diagnosis associated with the presentation includes (Delirium, paranoia, suicidal ideation, depression, anxiety, ADHD) <Alba Dobbins CNP - Last Filed: 12/12/22 20:33> Admission/Observation Consideration of admission/observation: Escalation of care including admission/observation considered <Alba Dobbins CNP - Last Filed: 12/12/22 20:33> Lab Data MDM Lab Attestation statement: I reviewed the patient's lab results. <Alba Dobbins CNP - Last Filed: 12/12/22 20:33> Result Diagrams: 12/12/22 19:58 12/12/22 19:58 <Alba Dobbins CNP - Last Filed: 12/12/22 20:33> Labs: Lab Results 12/12/22 12/12/22 12/12/22 Range/Units 15:02 15:02 15:02 WBC (4.8-10.8) X10*3/uL RBC (4.20-5.50) X10*6/uL Hgb (12.0-16.0) g/dl Hct (37.0-47.0) % MCV (80.0-98.0) fL MCH (27.0-33.0) pg MCHC (31.0-35.0) g/dl RDW (11.0-16.0) % Plt Count (160-400) X10*3/uL MPV (9.4-12.3) fL Immature Gran % (Auto) (0.0-0.4) % Neut % (Auto) (45-73) % Lymph % (Auto) (20-40) % Dale % (Auto) (2-11) % Eos % (Auto) (0-4) % Baso % (Auto) (0-2) % Lymph # (Auto) (1.2-4.9) X10*3/uL Dale # (Auto) (0.1-1.2) X10*3/uL Eos # (Auto) (0.0-0.4) X10*3/uL Baso # (Auto) (0.0-0.2) X10*3/uL Abs Immat Gran (auto) (0.00-0.03) X10*3/uL Absolute Neuts (auto) (2.0-8.3) x10*3/uL Absolute Nucleated RBC (0.0-0.012) X10*3/uL Nucleated RBC % (auto) (0.0-0.2) /100WBC Sodium (135-145) mmol/L Potassium (3.3-5.1) mmol/L Chloride (96-108) mmol/L Carbon Dioxide (22-29) mmol/L Anion Gap (12-20) BUN (9-16) mg/dL Creatinine (0.5-1.4) mg/dL Estim Creat Clear Calc Estimated GFR Random Glucose (60-115) mg/dL Calcium (8.4-10.2) mg/dL Total Bilirubin (0.0-1.0) mg/dL AST (5-31) U/L ALT (0-31) U/L Alkaline Phosphatase (39-117) U/L Total Protein (6.5-8.0) g/dL Albumin (3.5-5.0) g/dL Urine Color Urine Appearance Urine pH (5.0-9.0) Ur Specific Garnett (1.005-1.025) Urine Protein (Neg-Trace) mg/dL Urine Glucose (UA) (Negative) mg/dL Urine Ketones (Negative) mg/dL Urine Blood (Negative) Urine Nitrite (Negative) Ur Leukocyte Esterase (Negative) Urine Test NEGATIVE (NEGATIVE) Urine Opiates Screen Not Detected (Not Detect) Urine Fentanyl Screen Not Detected (Not Detect) Ur Barbiturates Screen Not Detected (Not Detect) Ur Phencyclidine Scrn Not Detected (Not Detect) Ur Amphetamines Screen Not Detected (Not Detect) U Benzodiazepines Scrn POSITIVE H (Not Detect) Urine Cocaine Screen Not Detected (Not Detect) U Marijuana (THC) Screen Not Detected (Not Detect) COVID-19 (SUSANNA) Negative (Negative) COVID-19 Clin Com See Note 12/12/22 12/12/22 12/12/22 Range/Units 15:02 19:58 19:58 WBC 5.4 (4.8-10.8) X10*3/uL RBC 3.59 L (4.20-5.50) X10*6/uL Hgb 11.0 L (12.0-16.0) g/dl Hct 33.0 L (37.0-47.0) % MCV 91.9 (80.0-98.0) fL MCH 30.6 (27.0-33.0) pg MCHC 33.3 (31.0-35.0) g/dl RDW 14.0 (11.0-16.0) % Plt Count 190 (160-400) X10*3/uL MPV 9.1 L (9.4-12.3) fL Immature Gran % (Auto) 0.4 (0.0-0.4) % Neut % (Auto) 34.7 L (45-73) % Lymph % (Auto) 43.4 H (20-40) % Dale % (Auto) 11.6 H (2-11) % Eos % (Auto) 9.2 H (0-4) % Baso % (Auto) 0.7 (0-2) % Lymph # (Auto) 2.3 (1.2-4.9) X10*3/uL Dale # (Auto) 0.6 (0.1-1.2) X10*3/uL Eos # (Auto) 0.5 H (0.0-0.4) X10*3/uL Baso # (Auto) 0.0 (0.0-0.2) X10*3/uL Abs Immat Gran (auto) 0.02 (0.00-0.03) X10*3/uL Absolute Neuts (auto) 1.9 L (2.0-8.3) x10*3/uL Absolute Nucleated RBC 0.000 (0.0-0.012) X10*3/uL Nucleated RBC % (auto) 0.0 (0.0-0.2) /100WBC Sodium 141 (135-145) mmol/L Potassium 4.4 (3.3-5.1) mmol/L Chloride 104 (96-108) mmol/L Carbon Dioxide 29 (22-29) mmol/L Anion Gap 12 (12-20) BUN 9 (9-16) mg/dL Creatinine 0.82 (0.5-1.4) mg/dL Estim Creat Clear Calc 90.4 Estimated GFR > 60 Random Glucose 109 (60-115) mg/dL Calcium 8.4 (8.4-10.2) mg/dL Total Bilirubin 0.2 (0.0-1.0) mg/dL AST 13 (5-31) U/L ALT 13 (0-31) U/L Alkaline Phosphatase 82 (39-117) U/L Total Protein 6.0 L (6.5-8.0) g/dL Albumin 3.3 L (3.5-5.0) g/dL Urine Color Yellow Urine Appearance Cloudy Urine pH 5.0 (5.0-9.0) Ur Specific Garnett 1.025 (1.005-1.025) Urine Protein Negative (Neg-Trace) mg/dL Urine Glucose (UA) Negative (Negative) mg/dL Urine Ketones Trace (Negative) mg/dL Urine Blood Negative (Negative) Urine Nitrite Negative (Negative) Ur Leukocyte Esterase Negative (Negative) Urine Test (NEGATIVE) Urine Opiates Screen (Not Detect) Urine Fentanyl Screen (Not Detect) Ur Barbiturates Screen (Not Detect) Ur Phencyclidine Scrn (Not Detect) Ur Amphetamines Screen (Not Detect) U Benzodiazepines Scrn (Not Detect) Urine Cocaine Screen (Not Detect) U Marijuana (THC) Screen (Not Detect) COVID-19 (SUSANNA) (Negative) COVID-19 Clin Com <Alba Dobbins CNP - Last Filed: 12/12/22 20:33> Lab Results 12/12/22 12/12/22 12/12/22 Range/Units 15:02 15:02 15:02 WBC (4.8-10.8) X10*3/uL RBC (4.20-5.50) X10*6/uL Hgb (12.0-16.0) g/dl Hct (37.0-47.0) % MCV (80.0-98.0) fL MCH (27.0-33.0) pg MCHC (31.0-35.0) g/dl RDW (11.0-16.0) % Plt Count (160-400) X10*3/uL MPV (9.4-12.3) fL Immature Gran % (Auto) (0.0-0.4) % Neut % (Auto) (45-73) % Lymph % (Auto) (20-40) % Dale % (Auto) (2-11) % Eos % (Auto) (0-4) % Baso % (Auto) (0-2) % Lymph # (Auto) (1.2-4.9) X10*3/uL Dale # (Auto) (0.1-1.2) X10*3/uL Eos # (Auto) (0.0-0.4) X10*3/uL Baso # (Auto) (0.0-0.2) X10*3/uL Abs Immat Gran (auto) (0.00-0.03) X10*3/uL Absolute Neuts (auto) (2.0-8.3) x10*3/uL Absolute Nucleated RBC (0.0-0.012) X10*3/uL Nucleated RBC % (auto) (0.0-0.2) /100WBC Sodium (135-145) mmol/L Potassium (3.3-5.1) mmol/L Chloride (96-108) mmol/L Carbon Dioxide (22-29) mmol/L Anion Gap (12-20) BUN (9-16) mg/dL Creatinine (0.5-1.4) mg/dL Estim Creat Clear Calc Estimated GFR Random Glucose (60-115) mg/dL Calcium (8.4-10.2) mg/dL Total Bilirubin (0.0-1.0) mg/dL AST (5-31) U/L ALT (0-31) U/L Alkaline Phosphatase (39-117) U/L Total Protein (6.5-8.0) g/dL Albumin (3.5-5.0) g/dL Urine Color Urine Appearance Urine pH (5.0-9.0) Ur Specific Garnett (1.005-1.025) Urine Protein (Neg-Trace) mg/dL Urine Glucose (UA) (Negative) mg/dL Urine Ketones (Negative) mg/dL Urine Blood (Negative) Urine Nitrite (Negative) Ur Leukocyte Esterase (Negative) Urine Test NEGATIVE (NEGATIVE) Urine Opiates Screen Not Detected (Not Detect) Urine Fentanyl Screen Not Detected (Not Detect) Ur Barbiturates Screen Not Detected (Not Detect) Ur Phencyclidine Scrn Not Detected (Not Detect) Ur Amphetamines Screen Not Detected (Not Detect) U Benzodiazepines Scrn POSITIVE H (Not Detect) Urine Cocaine Screen Not Detected (Not Detect) U Marijuana (THC) Screen Not Detected (Not Detect) COVID-19 (SUSANNA) Negative (Negative) COVID-19 Clin Com See Note 12/12/22 12/12/22 12/12/22 Range/Units 15:02 19:58 19:58 WBC 5.4 (4.8-10.8) X10*3/uL RBC 3.59 L (4.20-5.50) X10*6/uL Hgb 11.0 L (12.0-16.0) g/dl Hct 33.0 L (37.0-47.0) % MCV 91.9 (80.0-98.0) fL MCH 30.6 (27.0-33.0) pg MCHC 33.3 (31.0-35.0) g/dl RDW 14.0 (11.0-16.0) % Plt Count 190 (160-400) X10*3/uL MPV 9.1 L (9.4-12.3) fL Immature Gran % (Auto) 0.4 (0.0-0.4) % Neut % (Auto) 34.7 L (45-73) % Lymph % (Auto) 43.4 H (20-40) % Dale % (Auto) 11.6 H (2-11) % Eos % (Auto) 9.2 H (0-4) % Baso % (Auto) 0.7 (0-2) % Lymph # (Auto) 2.3 (1.2-4.9) X10*3/uL Dale # (Auto) 0.6 (0.1-1.2) X10*3/uL Eos # (Auto) 0.5 H (0.0-0.4) X10*3/uL Baso # (Auto) 0.0 (0.0-0.2) X10*3/uL Abs Immat Gran (auto) 0.02 (0.00-0.03) X10*3/uL Absolute Neuts (auto) 1.9 L (2.0-8.3) x10*3/uL Absolute Nucleated RBC 0.000 (0.0-0.012) X10*3/uL Nucleated RBC % (auto) 0.0 (0.0-0.2) /100WBC Sodium 141 (135-145) mmol/L Potassium 4.4 (3.3-5.1) mmol/L Chloride 104 (96-108) mmol/L Carbon Dioxide 29 (22-29) mmol/L Anion Gap 12 (12-20) BUN 9 (9-16) mg/dL Creatinine 0.82 (0.5-1.4) mg/dL Estim Creat Clear Calc 90.4 Estimated GFR > 60 Random Glucose 109 (60-115) mg/dL Calcium 8.4 (8.4-10.2) mg/dL Total Bilirubin 0.2 (0.0-1.0) mg/dL AST 13 (5-31) U/L ALT 13 (0-31) U/L Alkaline Phosphatase 82 (39-117) U/L Total Protein 6.0 L (6.5-8.0) g/dL Albumin 3.3 L (3.5-5.0) g/dL Urine Color Yellow Urine Appearance Cloudy Urine pH 5.0 (5.0-9.0) Ur Specific Garnett 1.025 (1.005-1.025) Urine Protein Negative (Neg-Trace) mg/dL Urine Glucose (UA) Negative (Negative) mg/dL Urine Ketones Trace (Negative) mg/dL Urine Blood Negative (Negative) Urine Nitrite Negative (Negative) Ur Leukocyte Esterase Negative (Negative) Urine Test (NEGATIVE) Urine Opiates Screen (Not Detect) Urine Fentanyl Screen (Not Detect) Ur Barbiturates Screen (Not Detect) Ur Phencyclidine Scrn (Not Detect) Ur Amphetamines Screen (Not Detect) U Benzodiazepines Scrn (Not Detect) Urine Cocaine Screen (Not Detect) U Marijuana (THC) Screen (Not Detect) COVID-19 (SUSANNA) (Negative) COVID-19 Clin Com <Michael Brock MD - Last Filed: 12/13/22 11:00> Discharge Plan Discharge Clinical Impression: Suicidal ideation, Bipolar disorder <Alba Dobbins CNP - Last Filed: 12/12/22 20:33> Patient Disposition: Still a Patient <Alba Dobbins CNP - Last Filed: 12/12/22 20:33> Prescriptions: No Action clonazepam [Klonopin] 1 mg Tablet 1 mg PO BID levothyroxine 100 mcg Tablet 100 mcg PO DAILY propranolol 10 mg Tablet 10 mg PO TID clonidine HCl 0.2 mg Tablet 0.2 mg PO BID PRN (Reason: Anxiety) trazodone 100 mg Tablet 100 mg PO BEDTIME nicotine 21 mg/24 hr Patch 24 Hour 1 patch TRANSDERMAL DAILY folic acid 1 mg Tablet 1 mg PO DAILY atomoxetine 40 mg Capsule 40 mg PO DAILY bupropion HCl 150 mg Tablet Extended Release 24 Hr 150 mg PO QAM gabapentin 400 mg Tablet 400 mg PO TID Vyvanse 20 mg Capsule 20 mg PO DAILY quetiapine 150 mg Tablet Extended Release 24 Hr 150 mg PO BEDTIME olanzapine 5 mg 5 mg PO BID <Alba Dobbins CNP - Last Filed: 12/12/22 20:33> Interventions: Fleming-Suicide Risk Severity Scale Last Done: 12/13/22 06:16 <Alba Dobbins CNP - Last Filed: 12/12/22 20:33>
[2022-12-12 19:50] LABS: Appearance Urine Cloudy; Color Urine Yellow; Glucose Urine UA Negative (Negative); Leukocyte Esterase Urine Negative (Negative); Nitrite Urine Negative (Negative); Specific Gravity - Urine 1.025 (1.005-1.025); Urine Blood Negative (Negative); Urine Ketones Trace mg/dL (Negative); Urine Protein Negative (Neg-Trace)
[2022-12-12 19:51] LABS: UPreg QC Valid YES; Urine Pregnancy NEGATIVE (NEGATIVE)
[2022-12-12 20:04] LABS: MANUAL DIFF FLAG NO
[2022-12-12 20:13] LABS: Basophils Percent Auto 0.7 % (0-2); Eosinophils Absolute Auto 0.5 X10*3/uL (0.0-0.4); Eosinophils Percent Auto 9.2 % (0-4); Imm Gran Abs Auto 0.02 X10*3/uL (0.00-0.03); Imm Gran Pct Auto 0.4 % (0.0-0.4); Lymphocytes Absolute Auto 2.3 X10*3/uL (1.2-4.9); Lymphocytes Percent Auto 43.4 % (20-40); Mean Corpuscular HGB Conc 33.3 g/dl (31.0-35.0); Mean Corpuscular Hemoglobin 30.6 pg (27.0-33.0); Mean Corpuscular Volume 91.9 fL (80.0-98.0); Mean Platelet Volume 9.1 fL (9.4-12.3); Monocytes Absolute Auto 0.6 X10*3/uL (0.1-1.2); Monocytes Percent Auto 11.6 % (2-11); Neutrophils Absolute Auto 1.9 x10*3/uL (2.0-8.3); Neutrophils Percent Auto 34.7 % (45-73); Platelet Count 190 X10*3/uL (160-400); Red Blood Count 3.59 X10*6/uL (4.20-5.50); White Blood Count 5.4 X10*3/uL (4.8-10.8)
[2022-12-12 20:23] LABS: Alanine Aminotransferase 13 U/L (0-31); Albumin Level 3.3 g/dL (3.5-5.0); Alkaline Phosphatase 82 U/L (39-117); Anion Gap 12 (12-20); Aspartate Amino Transferase 13 U/L (5-31); Bilirubin Total 0.2 mg/dL (0.0-1.0); Blood Urea Nitrogen 9 mg/dL (9-16); Calcium 8.4 mg/dL (8.4-10.2); Carbon Dioxide 29 mmol/L (22-29); Chloride 104 mmol/L (96-108); Creatinine Clr Calc Pharmacy 90.4; Estimated Glomerular Filt Rate > 60; Glucose Random 109 mg/dL (60-115); Potassium 4.4 mmol/L (3.3-5.1); Sodium 141 mmol/L (135-145)
[2022-12-12] MEDS: clonazePAM 1 MG TABLET PO (20:37)
[2022-12-12] MEDS: Gabapentin 400 MG CAPSULE PO (20:37)
[2022-12-12] MEDS: OLANZapine 5 MG TABLET PO (20:37)
[2022-12-12] MEDS: Propranolol HCL 10 MG TABLET PO (20:38)
[2022-12-12] MEDS: traZODone HCL 100 MG TABLET PO (20:38)
[2022-12-12 20:39] VITALS: BP 148/111; PULSE 84; RESP 18; TEMP 36.1; O2SAT 96
[2022-12-12] MEDS: cloNIDine HCL 0.2 MG TABLET PO (20:44)
[2022-12-13 00:48] VITALS: BP 110/71; PULSE 84; RESP 17; TEMP 36.2; O2SAT 94
[2022-12-13] MEDS: Levothyroxine Sodium 100 MCG TABLET PO (05:32)
--- NOTE | 2022-12-13 05:34 | PC.NURSE ---
Patient slept through the night, no distress observed/reported, medication compliant, behavior non concerning, engaged well with care team, disposition is section 12 inpatient bed search, VSS, will continue to monitor.
--- NOTE | 2022-12-13 07:14 | PC.NURSE ---
patient appears to remain asleep at present repisrations are even and unlabored patient appears in no distress
[2022-12-13 08:23] VITALS: BP 126/89; PULSE 86; RESP 16; TEMP 36.6; O2SAT 96
[2022-12-13] MEDS: Nicotine 21 MG PATCH.TD24 TRANSDERMA (08:45)
[2022-12-13] MEDS: Propranolol HCL 10 MG TABLET PO ×2 (08:45→15:51)
[2022-12-13] MEDS: buPROPion HCl XL 150 MG TAB.ER.24H PO (08:45)
[2022-12-13] MEDS: clonazePAM 1 MG TABLET PO (08:45)
[2022-12-13] MEDS: OLANZapine 5 MG TABLET PO (08:45)
[2022-12-13] MEDS: Folic Acid 1 MG TABLET PO (08:45)
[2022-12-13] MEDS: Gabapentin 400 MG CAPSULE PO ×2 (08:45→15:51)
--- NOTE | 2022-12-13 11:18 | HE.PHANOTE ---
RE METHADONE LAST DOSE VERIFIED 130MG LAST DOSED ON 12/12 FROM [facility]
[2022-12-13] MEDS: methADONE HCl 20 MG/2 ML ORAL.CONC 130 MG PO (11:40)
--- NOTE | 2022-12-13 13:45 | PC.NURSE ---
Yesenia from [facility] called for report.
--- NOTE | 2022-12-13 14:14 | MHC.CARE ---
Inpatient Bed secured @ [facility] for today 12/13/22
--- NOTE | 2022-12-13 16:14 | PC.NURSE ---
Patient pleasant and cooperative gave medications and asked for two vanilla ice creams.
--- NOTE | 2022-12-13 17:28 | PC.NURSE ---
Roxanna here to picker packer patient to go to [facility] at [facility].
== END 2022-12-13 17:37 ==
PROVIDERS: Nurse Practitioner Family; Emergency Provider Emergency Medicine Emergency Medical Services
DX: F31.9 Bipolar disorder, unspecified (principal); R45.851 Suicidal ideations; Z20.822 Contact with and (suspected) exposure to COVID-19; Z20.828 Contact with and (suspected) exposure to other viral communicable diseases; Z79.899 Other long term (current) drug therapy
CPT/HCPCS: 80053; 80307; 81003; 81025; 85025; 87635; 99285; S9485